=== PATIENT | female | born 2000 | race Native Hawaiian/Other Pacific Islander ===

== ENCOUNTER 2021-01-04 14:27 | Outpatient (REF) | payer OTHER, SELFPAY ==
--- NOTE | ~2021-01-04 | XR_ITS ---
EXAMINATION: XR KNEE, RIGHT CLINICAL INFORMATION: Medial sprain COMPARISON: None TECHNIQUE: Four views of the right knee. FINDINGS: Bones and soft tissues are normal. No fracture or joint effusion. Alignment is anatomic. Joint spaces are well maintained. No abnormal soft tissue calcification. XR/XR knee RT 4V IMPRESSION: Normal right knee.
== END 2021-01-04 14:28 | disposition home or self-care (01) ==
LOC: HO.HMGCX 14:27
PROVIDERS: Visit Provider Physician Assistant Medical
DX: Z13.89 Encounter for screening for other disorder (principal)
CPT/HCPCS: 73564

== ENCOUNTER 2021-11-05 15:13 | Outpatient (REF) | payer OTHER, SELFPAY ==
[2021-11-05 15:23] LABS: MANUAL DIFF FLAG NO
[2021-11-05 15:57] LABS: Basophils Percent Auto 0.3 % (0-2); Eosinophils Absolute Auto 0.1 X10*3/uL (0.0-0.4); Eosinophils Percent Auto 0.7 % (0-4); Hematocrit 37.4 % (37.0-47.0); Imm Gran Abs Auto 0.01 X10*3/uL (0.00-0.03); Imm Gran Pct Auto 0.1 % (0.0-0.4); Lymphocytes Absolute Auto 1.5 X10*3/uL (1.2-4.9); Lymphocytes Percent Auto 20.4 % (20-40); Mean Corpuscular HGB Conc 32.1 g/dl (31.0-35.0); Mean Corpuscular Hemoglobin 24.7 pg (27.0-33.0); Mean Corpuscular Volume 77.1 fL (80.0-98.0); Mean Platelet Volume 12.3 fL (9.4-12.3); Monocytes Absolute Auto 0.6 X10*3/uL (0.1-1.2); Monocytes Percent Auto 7.6 % (2-11); Neutrophils Absolute Auto 5.2 x10*3/uL (2.0-8.3); Neutrophils Percent Auto 70.9 % (45-73); Platelet Count 309 X10*3/uL (160-400); Red Blood Count 4.85 X10*6/uL (4.20-5.50); Red Cell Distribution Width 14.6 % (11.0-16.0); White Blood Count 7.4 X10*3/uL (4.8-10.8)
[2021-11-05 16:27] LABS: Alanine Aminotransferase 14 U/L (0-31); Albumin Level 4.8 g/dL (3.5-5.0); Alkaline Phosphatase 76 U/L (39-117); Anion Gap 14 (12-20); Aspartate Amino Transferase 16 U/L (5-31); Bilirubin Total 0.5 mg/dL (0.0-1.0); Blood Urea Nitrogen 17 mg/dL (9-16); Calcium 9.7 mg/dL (8.4-10.2); Carbon Dioxide 24 mmol/L (22-29); Chloride 104 mmol/L (96-108); Creatinine Clr Calc Pharmacy 147.6; Estimated Glomerular Filt Rate > 60; Glucose Fasting 86 mg/dL (60-99); Potassium 4.4 mmol/L (3.3-5.1); Sodium 138 mmol/L (135-145); Total Protein 8.2 g/dL (6.5-8.0)
[2021-11-05 16:47] LABS: TSH reflex Free T4 1.06 uIU/mL (0.32-4.0); Vitamin D 25-OH Total 20.5 ng/mL (>30)
[2021-11-05 17:03] LABS: Folate 15.6 ng/mL (> or = 4.0); Vitamin B12 393 pg/mL (200-900)
== END 2021-11-05 15:14 | disposition home or self-care (01) ==
LOC: HO.LAB 15:13
PROVIDERS: Visit Provider Nurse Practitioner Family
DX: Z13.29 Encounter for screening for other suspected endocrine disorder (principal); Z76.89 Persons encountering health services in other specified circumstances
CPT/HCPCS: 36415; 80053; 82306; 82607; 82746; 84443; 85025

== ENCOUNTER 2022-04-06 13:32 | Outpatient (REF) | payer OTHER, SELFPAY ==
[2022-04-09 04:44] LABS: Transglutaminase Ab IgG <1.0 U/mL
== END 2022-04-06 13:33 | disposition home or self-care (01) ==
LOC: HO.LAB 13:32
PROVIDERS: PCP Internal Medicine; Visit Provider Internal Medicine
DX: K90.41 Non-celiac gluten sensitivity (principal)
CPT/HCPCS: 36415; 86364

== ENCOUNTER 2022-12-29 07:31 | Emergency (ER) | payer OTHER, SELFPAY ==
[2022-12-29 07:36] VITALS: BP 147/82; PULSE 94; RESP 19; TEMP 36.6; O2SAT 97; BMI 41.1
--- NOTE | 2022-12-29 07:57 | ED.EAR ---
HPI - Ear Problem General Chief complaint: Ear Problems Stated complaint: ear infection? headache Time Seen by Provider: 12/29/22 07:41 Source: patient Mode of arrival: ambulatory Limitations: no limitations History of Present Illness HPI Narrative: 22-year-old female presents with left ear pain. Pain started this morning. Moderate nature. There is no clear relieving or exacerbating features. The pain does not radiate. It is associated with a hearing of wind. She denies any discharge. She denies any fevers or chills. There has been no upper respiratory symptoms. There has been no prior treatment Related Data Home Medications Medication Instructions Recorded Confirmed cetirizine 10 mg tablet (All Day 10 mg PO DAILY PRN 01/02/21 09/27/22 Allergy (cetirizine)) Previous Rx's Medication Instructions Recorded epinephrine 0.3 mg/0.3 mL 0.3 mg (0.3 mL) IM Q4H PRN 11/05/21 injection, auto-injector (EpiPen) anaphylaxis #2 ea albuterol sulfate 90 mcg/actuation 1 inh inhalation QID PRN shortness 03/22/22 aerosol inhaler of breath or wheezing 30 days #8.5 grams acetaminophen 500 mg tablet 500 mg PO Q6H PRN fever 30 days 11/16/22 #120 tabs amoxicillin 875 mg tablet 875 mg PO BID #14 tabs 12/29/22 ewimwpux-[id number]-fbeebnxkt 3.5 4 drp otic (ear) left Q8H 7 days 12/29/22 mg-10,000 unit/mL-1 % ear #10 mL drops,susp Allergies Allergy/AdvReac Type Severity Reaction Status Date / Time corn [CORN] Allergy Severe ANAPHYLAXIS Verified 09/27/22 14:15 grass pollen Allergy Severe Anaphylaxis Verified 09/27/22 14:15 latex Allergy Severe Hives Verified 09/27/22 14:15 milk [MILK] Allergy Severe ANAPHYLAXIS Verified 09/27/22 14:15 nut - unspecified [NUTS] Allergy Unknown 1 Verified 09/27/22 14:15 kiwi Allergy Anaphylaxis Verified 12/29/22 07:36 pineapple Allergy Anaphylaxis Verified 12/29/22 07:36 dust mites Allergy Severe Itching Uncoded 09/27/22 14:15 Review of Systems Review of Systems: CONSTITUTIONAL: Denies weight loss, fever and chills. HEENT: Denies changes in vision + hearing. RESPIRATORY: Denies SOB and cough. CV: Denies palpitations no CP. GI: Denies abdominal pain, nausea, vomiting and diarrhea. : Denies dysuria and urinary frequency. MSK: Denies myalgia and joint pain. SKIN: Denies rash and pruritus. NEUROLOGICAL: Denies headache and syncope. PSYCHIATRIC: Denies recent changes in mood. Denies anxiety and depression. All other ROS are negative unless in HPI PMFSH Past Medical History Medical History History of heart attack MCL sprain of right knee Surgical History History of tonsillectomy Family History Family History Mother Diabetes Father Family history unknown Social History Social History Housing: Apartment Alcohol intake: never Patient Tobacco Use Status: Never used Tobacco e-Cigarette/Vaping Use: Never Used Second Hand Smoke Exposure: No Advance Directives: No service: No Current occupational status: employed Current occupational exposures/hazards: No Cognitive needs: No Hearing needs: No Vision needs: No Physical Exam Vital Signs: Vital Signs: Last Vital Signs Temp 98 F 12/29/22 07:36 Pulse 94 12/29/22 07:36 Resp 19 12/29/22 07:36 BP 147/82 H 12/29/22 07:36 Pulse Ox 97 12/29/22 07:36 O2 Del Method Room Air 12/29/22 07:36 BMI result Body Mass Index 41.1 GEN: Well developed, no acute distress, alert, oriented HEENT: Normocephalic, atraumatic, normal external ears, nose appears normal, normal right ear, left ear reveals edematous and erythematous external auditory canal, opacification of the tympanic membrane consistent with a combination of otitis media and externa Eyes: Normal to appearance Neck: Supple, no lymphadenopathy Respiratory: Talks in complete sentences, no respiratory distress Extremities: No clubbing cyanosis or edema Neurologic: No focal neurologic deficits, cranial nerves 2-12 intact, gait normal Skin: No rash Medical Decision Making Medical Decision Making MDM Narrative: Patient presents with left ear discomfort. Examination was consistent with otitis externa/media. It is most likely a bacterial infection. Differential would also include a viral infection. She has no respiratory symptoms. Plan will be for topical and oral antibiotics. Follow up as needed. Differential Diagnosis Differential Diagnoses: The differential diagnosis associated with the presentation includes (See above) Prescription Management I considered prescription management with: Pain Medication and Antibiotic Discharge Plan Discharge Clinical Impression: Otitis externa, Otitis media Patient Disposition: Home, Self-Care Instructions: Otitis Externa (DC), How to Use Ear Drops (ED), Ear Infection (ED) Prescriptions: New vcikwjej-ccorvfdug-BD 3.5-10,000-1 mg/mL-unit/mL-% drops,suspension 4 drp otic (ear) left Q8H 7 Days Qty: 10 0RF amoxicillin 875 mg tablet 875 mg PO BID Qty: 14 0RF No Action acetaminophen 500 mg tablet 500 mg PO Q6H PRN (Reason: fever) 30 Days Qty: 120 0RF cetirizine [All Day Allergy (cetirizine)] 10 mg tablet 10 mg PO DAILY PRN epinephrine [EpiPen] 0.3 mg/0.3 mL auto-injector 0.3 mg IM Q4H PRN (Reason: anaphylaxis) Qty: 2 0RF albuterol sulfate 90 mcg/actuation HFA aerosol inhaler 1 inh inhalation QID PRN (Reason: shortness of breath or wheezing) 30 Days Qty: 8.5 1RF Referrals: Physician,Unknown J [Primary Care Provider] - (PMD 1 week)
== END 2022-12-29 08:14 | disposition home or self-care (01) ==
PROVIDERS: Emergency Provider Emergency Medicine
DX: H60.92 Unspecified otitis externa, left ear (principal); H66.92 Otitis media, unspecified, left ear; J45.909 Unspecified asthma, uncomplicated; E66.01 Morbid (severe) obesity due to excess calories; Z68.41 Body mass index [BMI] 40.0-44.9, adult; Z79.899 Other long term (current) drug therapy
CPT/HCPCS: 99282; 99283

== ENCOUNTER 2023-04-25 07:22 | Emergency (ER) | payer OTHER, SELFPAY ==
[2023-04-25 07:43] VITALS: BP 126/80; PULSE 90; RESP 19; TEMP 36.6; O2SAT 98; BMI 39.9
--- NOTE | 2023-04-25 09:25 | ED.EAR ---
HPI - Ear Problem General Chief complaint: Ear Problems Stated complaint: Headache R Ear Pain Time Seen by Provider: 04/25/23 09:05 Source: patient, RN notes reviewed and old records reviewed Mode of arrival: ambulatory History of Present Illness HPI Narrative: 23-year-old female with past medical history of GERD, obesity, asthma, presenting to the ED complaining of right ear pain since yesterday. Denies known fever/chills, drainage from area, cough, sore throat, hearing kirk Related Data Home Medications Medication Instructions Recorded Confirmed cetirizine 10 mg tablet (All Day 10 mg PO DAILY PRN 01/02/21 09/27/22 Allergy (cetirizine)) Previous Rx's Medication Instructions Recorded epinephrine 0.3 mg/0.3 mL 0.3 mg (0.3 mL) IM Q4H PRN 11/05/21 injection, auto-injector (EpiPen) anaphylaxis #2 ea albuterol sulfate 90 mcg/actuation 1 inh inhalation QID PRN shortness 03/22/22 aerosol inhaler of breath or wheezing 30 days #8.5 grams acetaminophen 500 mg tablet 500 mg PO Q6H PRN fever 30 days 11/16/22 #120 tabs amoxicillin 875 mg tablet 875 mg PO BID #14 tabs 12/29/22 dvrkkzag-pzyuczzht-vraswzagq 3.5 4 drp otic (ear) left Q8H 7 days 12/29/22 mg-10,000 unit/mL-1 % ear #10 mL drops,susp amoxicillin 875 mg-potassium 1 tab PO BID 7 days #14 tabs 04/25/23 clavulanate 125 mg tablet Allergies Allergy/AdvReac Type Severity Reaction Status Date / Time corn [CORN] Allergy Severe ANAPHYLAXIS Verified 09/27/22 14:15 grass pollen Allergy Severe Anaphylaxis Verified 09/27/22 14:15 latex Allergy Severe Hives Verified 09/27/22 14:15 milk [MILK] Allergy Severe ANAPHYLAXIS Verified 09/27/22 14:15 nut - unspecified [NUTS] Allergy Unknown 1 Verified 09/27/22 14:15 kiwi Allergy Anaphylaxis Verified 12/29/22 07:36 pineapple Allergy Anaphylaxis Verified 12/29/22 07:36 dust mites Allergy Severe Itching Uncoded 09/27/22 14:15 Review of Systems Review of Systems: Constitutional: No Fever, No Chills ENT/Mouth: + Ear Pain, No Nasal Congestion, No Sinus Pain, No Hoarseness, No sore throat, No Rhinorrhea, No Swallowing Difficulty Cardiovascular: No Chest Pain, No SOB Respiratory: No Cough, No Sputum, No Wheezing Gastrointestinal: No Nausea, No Vomiting, No Diarrhea, No Constipation, No Abdominal pain Musculoskeletal: No joint pain, No Myalgias Skin: No Skin Lesions, No rash Yes all other systems are reviewed and are negative Constitutional: Constitutional: Reports as per [facility] Past Medical History Attestation statement: The following information was validated with the patient. Source: old records reviewed Onset Date is defined in the Problem List Problems that require an onset date and time if occurred within 24 hrs of arrival to the ED Aortic Dissection and Rupture; Neurologic impairment; Cardiopulmonary Arrest; Endotracheal Intubation; Insertion or Replacement of Mechanical Circulatory Assist Device Medical History History of heart attack MCL sprain of right knee Surgical History History of tonsillectomy Family History Family History Mother Diabetes Father Family history unknown Social History Social History Housing: Apartment Alcohol intake: never Patient Tobacco Use Status: Never used Tobacco e-Cigarette/Vaping Use: Never Used Second Hand Smoke Exposure: No Advance Directives: No service: No Current occupational status: employed Current occupational exposures/hazards: No Cognitive needs: No Hearing needs: No Vision needs: No Physical Exam Vital Signs: Vital Signs: Last Vital Signs Temp 98 F 04/25/23 07:43 Pulse 90 04/25/23 07:43 Resp 19 04/25/23 07:43 BP 126/80 04/25/23 07:43 Pulse Ox 98 04/25/23 07:43 BMI result Body Mass Index 39.9 Const: General: cooperative, healthy appearing and no acute distress Orientation/consciousness: patient oriented x3 Limitations: no limitations HEENT: Head: Yes normal to inspection and Yes atraumatic Ears: hearing grossly normal bilaterally, external ears normal, mastoids normal and TM abnormal bulging on the right, dull on the right and erythematous on the right General nose exam: Normal external nose present Face and sinus: Yes normal facial exam Mouth: Normal oral and palatal mucosa present Throat: Yes posterior oropharynx normal, Yes uvula midline and No peritonsillar mass Eyes: General: appearance normal, both eyes and all related structures EOM: EOMs intact bilaterally Neck: Neck: Yes normal visual inspection and Yes no meningeal signs Resp: Effort & Inspection: normal respiratory effort and no respiratory distress Cardio: Rate: regular rate Skin: Rashes: no rashes Wounds: no wounds Neuro: General: patient oriented x3, tone normal and no meningeal signs Cranial nerves: Yes CN's II-XII intact bilaterally Gait exam (Neuro): Normal gait present Extrem: General: Yes normal to inspection Medical Decision Making Medical Decision Making MDM Narrative: 23-year-old female with past medical history of GERD, obesity, asthma, presenting to the ED complaining of right ear pain since yesterday. On exam VSS, NAD, nontoxic appearing, R TM buldging w/erythema, no mastoid ttp, oropharynx wnl. Concern otitis media. Low concern for mastoiditis/otitis externa, no evidence of [employer]/retropharyngeal abscess Plan: PO antibiotics Please refer to course for remaining clinical decision making, interpretation of labs/imaging results, and discussions with consultants and/or family members. Results discussed with patient including worrisome signs and symptoms and strict return precautions, and when to return to the emergency department. They verbalized understanding and feel safe for discharge at this time. Differential Diagnosis Differential Diagnoses: The differential diagnosis associated with the presentation includes As above External Record Review External record reviewed: Inpatient record, Office record, Outpatient record, Prior outpatient labs, Prior outpatient radiology, Primary care record and Outside ED record Tests considered The following testing was considered but not selected: As above Prescription Management I considered prescription management with: Pain Medication and Antibiotic Discharge Plan Discharge Clinical Impression: Otitis media Patient Disposition: Home, Self-Care Instructions: Ear Infection (ED) Additional Instructions: You have an inner ear infection. Please take antibiotics as prescribed Alternate Tylenol and Motrin at home as needed for fever/pain Follow-up with her doctor If symptoms persist or worsen return to the ED Prescriptions: New amoxicillin-pot clavulanate 875-125 mg tablet 1 tab PO BID 7 Days Qty: 14 0RF No Action acetaminophen 500 mg tablet 500 mg PO Q6H PRN (Reason: fever) 30 Days Qty: 120 0RF xpmsvpgh-kgmhefxhz-FX 3.5-10,000-1 mg/mL-unit/mL-% drops,suspension 4 drp otic (ear) left Q8H 7 Days Qty: 10 0RF amoxicillin 875 mg tablet 875 mg PO BID Qty: 14 0RF cetirizine [All Day Allergy (cetirizine)] 10 mg tablet 10 mg PO DAILY PRN epinephrine [EpiPen] 0.3 mg/0.3 mL auto-injector 0.3 mg IM Q4H PRN (Reason: anaphylaxis) Qty: 2 0RF albuterol sulfate 90 mcg/actuation HFA aerosol inhaler 1 inh inhalation QID PRN (Reason: shortness of breath or wheezing) 30 Days Qty: 8.5 1RF Referrals: Michelle Vela MD [Primary Care Provider] - 1 week Stand Alone Forms: Work/School Release Interventions: ED Discharge Assessment Last Done: 04/25/23 10:12 Discharge Date/Time: 04/25/23 10:13
== END 2023-04-25 10:13 | disposition home or self-care (01) ==
PROVIDERS: Emergency Provider Emergency Medicine Emergency Medical Services; PCP Internal Medicine
DX: H66.91 Otitis media, unspecified, right ear (principal); R51.9 Headache, unspecified; Z79.899 Other long term (current) drug therapy
CPT/HCPCS: 99282; 99283

== ENCOUNTER 2023-05-03 14:31 | Outpatient (AMB) | payer OTHER, SELFPAY ==
--- NOTE | 2023-05-03 15:24 | AM.OFFWIN_ITS ---
Intake Vital Signs 05/03/23 15:25 Height 5 ft 5 in Weight 240 lb BMI 39.9 BP 122/78 Blood Pressure Location Lt brachial Position Sitting Pulse 75 Pulse Source Pulse Oximeter Temp 97.9 F Temp Source Oral Pulse Oximetry (%) 98 Oxygen Delivery Method Room Air Intake Visit Reasons: EST/ear infection (lobby) Intake Note: pt is here for c.o left ear infection, started a week ago Patient Tobacco Use Status: Never used Tobacco Allergies corn [CORN] Allergy (Severe, Verified 05/03/23 15:24) ANAPHYLAXIS grass pollen Allergy (Severe, Verified 05/03/23 15:24) Anaphylaxis latex Allergy (Severe, Verified 05/03/23 15:24) Hives milk [MILK] Allergy (Severe, Verified 05/03/23 15:24) ANAPHYLAXIS nut - unspecified [NUTS] Allergy (Unknown, Verified 05/03/23 15:24) 1 kiwi Allergy (Verified 05/03/23 15:24) Anaphylaxis pineapple Allergy (Verified 05/03/23 15:24) Anaphylaxis dust mites Allergy (Severe, Uncoded 09/27/22 14:15) Itching Do you need a note to return to daycare/school/sports/work: Yes HPI HPI Comments History of Present Illness Details This is a 23-year-old female with no stated past medical history who was treated on April 25, 2023 with Augmentin for a right ear infection presenting for evaluation of left ear pain and a headache. Patient states she is compliant with her Augmentin and denies having any fevers, chills, sore throat or sinus pain. Patient has not taken any medication for treatment of her headache. [facility] Medical History History of heart attack MCL sprain of right knee Surgical History History of tonsillectomy Family History Mother Diabetes Father Family history unknown Social History Housing: Apartment Alcohol intake: never Patient Tobacco Use Status: Never used Tobacco e-Cigarette/Vaping Use: Never Used Second Hand Smoke Exposure: No service: No Current occupational status: employed Current occupational exposures/hazards: No Cognitive needs: No Hearing needs: No Vision needs: No Review of Systems Const Reports as per HPI, Reports no additional complaints, Denies chills, Denies fever(s) and Reports headache(s) Eyes Reports as per HPI ENT Reports otalgia, Denies facial pain, Reports headache(s) and Denies sinus pressure Card Reports no additional complaints Resp Reports no additional complaints Neuro Reports headache(s) Psych Reports no additional complaints Physical Exam Vital Signs: Last Vital Signs Temp 97.9 F 05/03/23 15:25 Pulse 75 05/03/23 15:25 BP 122/78 05/03/23 15:25 Pulse Ox 98 05/03/23 15:25 Oxygen Delivery Method Room Air 05/03/23 15:25 BMI result Body Mass Index 39.9 Const General: cooperative, healthy appearing, comfortable, no acute distress and well developed Nutritional Appearance: overweight Orientation/consciousness: patient oriented x3 Limitations: no limitations HEENT Head: Yes normal to inspection Ears: hearing grossly normal bilaterally, external ears normal, TM's abnormal bilaterally (TMs bulging bilaterally, mild erythema right TM, no fluid level bilaterally) and EAC's normal General nose exam: Normal external nose present Face and sinus: Yes normal facial exam and No sinus tenderness Mouth: Normal oral and palatal mucosa present Throat: Yes posterior oropharynx normal and No postnasal drainage Eyes Conjunctivae: conjunctivae normal Sclerae: sclerae normal Corneas: corneas normal Pupils: Equal, round and reactive pupils present EOM: EOMs intact bilaterally Neck Lymphatic: no lymphadenopathy noted Resp Effort & Inspection: normal respiratory effort, able to speak in complete sentences, no audible wheezes, no cough and no use of accessory muscles Auscultation: clear to auscultation bilaterally and no wheezes Cardio Rate: regular rate Rhythm: regular rhythm Skin General skin exam: no rashes or lesions noted Neuro General: patient oriented x3 Cranial nerves: Yes Equal, round and reactive pupils present Psych Appearance: grossly normal Mental Status: mental status grossly normal Insight: Good insight present (Psych) Judgement: Good judgement present (Psych) Assessment & Plan Assessment & Plan (1) Otalgia, bilateral: Comment: Patient has residual erythema in her right ear however she recently completed a 7 day course of Augmentin. I do not feel additional antibiotic therapy is warranted. Code(s): H92.03 - Otalgia, bilateral Plan: Fluticasone nasal spray 1 spray each nostril once daily for 7-10 days. Medications: New fluticasone propionate 50 mcg/actuation administer into each nostril 1 spray intranasal DAILY 16 grams 1RF Coding Level of Care Code Est Pt Level 3 (44105) Diagnoses Otalgia, bilateral H92.03 Time Spent (min) 20
[2023-05-03 15:25] VITALS: BP 122/78; PULSE 75; TEMP 36.6; O2SAT 98; BMI 39.9
== END 2023-05-03 16:36 | disposition home or self-care (01) ==
PROVIDERS: PCP Internal Medicine; Visit Provider Physician Assistant
DX: H92.03 Otalgia, bilateral (principal)
CPT/HCPCS: 99213

== ENCOUNTER 2023-05-10 13:42 | Outpatient (AMB) | payer OTHER, SELFPAY ==
--- NOTE | 2023-05-10 13:45 | A.OFFPC_ITS ---
Vital Signs 05/10/23 13:46 Height 5 ft 5 in Weight 255 lb BMI 42.4 BP 132/80 Blood Pressure Location Lt brachial Position Sitting Intake Visit Reasons: [facility] [place] follow up ear infection Intake Note: Patient here for [facility] [place] [facility] follow up Ear Infection Dental Instructor Required: No Accompanied by: Self / Same As Patient Allergies corn [CORN] Allergy (Severe, Verified 05/10/23 13:48) ANAPHYLAXIS grass pollen Allergy (Severe, Verified 05/10/23 13:48) Anaphylaxis latex Allergy (Severe, Verified 05/10/23 13:48) Hives milk [MILK] Allergy (Severe, Verified 05/10/23 13:48) ANAPHYLAXIS nut - unspecified [NUTS] Allergy (Unknown, Verified 05/10/23 13:48) 1 kiwi Allergy (Verified 05/10/23 13:48) Anaphylaxis pineapple Allergy (Verified 05/10/23 13:48) Anaphylaxis dust mites Allergy (Severe, Uncoded 09/27/22 14:15) Itching Medication List - Last Reconciled 05/10/23 by Michelle Turk MD cetirizine (All Day Allergy (cetirizine)) 10 mg PO DAILY PRN epinephrine (EpiPen) 0.3 mg (0.3 mL) IM Q4H PRN Tobacco use date assessed: 05/10/23 Dental Screening Dental Screen Date: 05/10/23 Did you have a dental visit in the last 12 months?: No Did you have a dental problem in the last 6 months where you did not have access to dental care?: No Was dental information given to patient?: Patient has dentist HPI HPI Comments History of Present Illness Details This is a 23-year-old female that comes today complaining of bilateral ear discomfort Rodriguez prominent in the left ear that has been present for about the 1st week of April. She went to ER and was prescribed Augmentin which she completed. She went to walk-in clinic 05/03/2023 for a similar complaint. She said she constantly has ear infections that would like to see ENT. No nasal congestion. Some sore throat. [facility] Medical History History of heart attack MCL sprain of right knee Surgical History History of tonsillectomy Family History Mother Diabetes Father Family history unknown Social History Housing: Apartment Alcohol intake: never Patient Tobacco Use Status: Never used Tobacco e-Cigarette/Vaping Use: Never Used Second Hand Smoke Exposure: No service: No Current occupational status: employed Current occupational exposures/hazards: No Cognitive needs: No Hearing needs: No Vision needs: No Questionnaire PHQ-9 Over the last 2 weeks, how often have you been bothered by any of the following problems? 1. Little interest or pleasure in doing things: not at all 2. Feeling down, depressed, or hopeless: not at all 3. Trouble falling or staying asleep, or sleeping too much: not at all 4. Feeling tired or having little energy: not at all 5. Poor appetite or overeating: not at all 6. Feeling bad about yourself - or that you are a failure or have let yourself or your family down: not at all 7. Trouble concentrating on things, such as reading the newspaper or watching television: not at all 8. Moving or speaking so slowly that other people could have noticed. Or the opposite - being so fidgety or restless that you have been moving around a lot more than usual: not at all 9. Thoughts that you would be better off or of hurting yourself in some way: not at all Total score: 0 Depression Screening Interpretation: Negative Depression Screening Done: Yes 18688 - PHQ-9 Billing: Yes Source: Developed by Drs. Drake Powers, Martha Yeung, Rudolph Hankins and colleagues, with an educational alicia from [employer]. Thrive Questionnaire Date Thrive assessed: 05/10/23 I am a: Patient What is your living situation today?: I have a steady place to live Within the past 12 months, did the food you bought not last and you didn't have the money to get more?: Never true Within the past 12 months, did you worry whether your food would run out before you got money to buy more?: Never true Do you have trouble paying for medicines?: No Do you have trouble getting transportation to medical appointments?: No Do you have trouble paying your heating and electricity bill?: No Do you have trouble taking care of your child, family member or friend?: No Do you have trouble with day-to-day activities such as bathing, preparing meals, shopping, managing finances, etc.?: No Are you currently unemployed and looking for a job?: No Are you interested in more education?: No Please select the resources that you would like help with: None Currently or been in a relationship where the following occur: no concerns reported THRIVE Score: 0 AUDIT C Alcohol Use Questionnaire (AUDIT-C) 1. How often do you have a drink containing alcohol?: Never Total Score: 0 EDGAR-7 AMB Questionnaire EDGAR-7 Date EDGAR - 7 assessed: 05/10/23 Feeling nervous, anxious, or on edge: 0 = Not at all Not being able to stop or control worryin = Not at all Worrying too much about different things: 0 = Not at all Trouble relaxin = Not at all Being so restless that it is hard to sit still: 0 = Not at all Becoming easily annoyed or irritable: 0 = Not at all Feeling afraid as if something awful might happen: 0 = Not at all Total EDGAR-7 score (0-4 normal; 5-9 mild; 10-14 moderate; 15-21 severe): 0 Source: Developed by Drs. Drake Powers, Martha Yeung, Rudolph Hankins and colleagues, with an educational alicia from [employer]. EDGAR-7 Assessment Billing EDGAR-7 Assessment Tool: EDGAR-7 Assessment 71952 Review of Systems Const All systems reviewed & are unremarkable except as noted in HPI and below Eyes Reports no additional complaints, Denies change in vision and Denies other visual disturbances Card Denies chest pain at rest, Denies chest pain with activity, Denies edema, Denies irregular heart rhythm, Denies claudication, Denies dyspnea, Denies dyspnea on exertion, Denies orthopnea, Denies paroxysmal nocturnal dyspnea and Denies slow heart rate Resp Denies cough, Denies dyspnea and Denies dyspnea on exertion GI Denies abdominal pain, Denies change in bowel habits, Denies excessive flatus, Denies nausea and Denies vomiting Denies urinary incontinence, Denies urinary hesitancy and Denies urinary urgency Musc Denies abnormal gait, Denies atrophy, Denies deformity and Denies limited range of motion Skin/Breast Denies bleeding lesions, Denies changing lesions and Denies rash Neuro Denies abnormal gait, Denies behavioral changes and Denies lack of coordination Psych Denies behavioral changes Physical exam (Primary Care) Vital Signs: Last Vital Signs BP 132/80 05/10/23 13:46 BMI result Body Mass Index 42.4 Tobacco/Smoking Status: Tobacco use Status Tobacco use date assessed 05/10/23 05/10/23 13:52 Patient Tobacco Use Status Never used Tobacco 05/10/23 13:52 e-Cigarette/Vaping Use Never Used 05/10/23 13:52 PHQ-9: PHQ-9 Score PHQ-9: Total score 0 05/10/23 14:02 Depression Screening Interpretation: Negative Thrive Assessment: Date of Thrive Assessment Date Thrive assessed 05/10/23 05/10/23 13:52 Currently or been in a relationship where the following occur: no concerns reported Eyes General: appearance normal, both eyes and all related structures Eyelids: Yes eyelids normal Conjunctivae: conjunctivae normal Neck Neck: Yes normal visual inspection and Yes supple Resp Effort & Inspection: normal respiratory effort Auscultation: clear to auscultation bilaterally Cardio Jugular venous distension: no JVD Rate: regular rate Rhythm: regular rhythm Heart sounds: S1 normal heart sound present and S2 normal heart sound present Extrem General: Yes full ROM Office Procedures Flu Questionnaire Does the patient have a severe egg allergy?: No Immunizations flu vacc [id number] 6mos up(PF) 60 mcg(15 mcgx4)/0.5 mL IM syringe Performing Provider: Michelle Turk MD [facility] Documented (not given) by: TONIA Perales on 05/10/23 14:00 Reason Not Given: Patient Refused Assessment and Plan Assessment & Plan (1) Recurrent acute otitis media: Code(s): H66.90 - Otitis media, unspecified, unspecified ear Plan: Start Cipro HC. Referred to ENT. Orders: Orders Influenza [id number] Immunization Today Z23 - Encounter for immunization Referrals Ear/Nose/Throat Referral H66.90 - Otitis media, unspecified, unspecified ear, H92.03 - Otalgia, bilateral Medications: New ciprofloxacin-hydrocortisone 0.2-1 % (Cipro HC) 3 drps otic (ears) BID 10 mL 0RF 5 days Changed From cetirizine (All Day Allergy (cetirizine)) 10 mg PO DAILY PRN To cetirizine (All Day Allergy (cetirizine)) 10 mg PO DAILY PRN 90 tabs 0RF allergy symptoms 90 days Refilled epinephrine (EpiPen) 0.3 mg (0.3 mL) IM Q4H PRN 2 ea 0RF anaphylaxis Z91.018 - Allergy to other foods Coding Level of Care Code Est Pt Level 3 (11400) Diagnoses Recurrent acute otitis media H66.90 Additional Codes EDGAR-7 Assessment Billing - EDGAR-7 Assessment Tool: EDGAR-7 Assessment 36308 ([id number]) Time Spent (min) 19
[2023-05-10 13:46] VITALS: BP 132/80; BMI 42.4
== END 2023-05-10 14:05 | disposition home or self-care (01) ==
PROVIDERS: PCP Internal Medicine; Visit Provider Internal Medicine
DX: H66.93 Otitis media, unspecified, bilateral (principal)
CPT/HCPCS: 99213

== ENCOUNTER 2023-07-19 10:15 | Outpatient (REF) | payer OTHER, SELFPAY ==
[2023-07-19 10:34] LABS: MANUAL DIFF FLAG NO
[2023-07-19 11:11] LABS: Basophils Percent Auto 0.3 % (0-2); Eosinophils Absolute Auto 0.1 X10*3/uL (0.0-0.4); Eosinophils Percent Auto 0.9 % (0-4); Hematocrit 37.2 % (37.0-47.0); Hemoglobin 11.8 g/dl (12.0-16.0); Imm Gran Abs Auto 0.01 X10*3/uL (0.00-0.03); Imm Gran Pct Auto 0.1 % (0.0-0.4); Lymphocytes Absolute Auto 1.6 X10*3/uL (1.2-4.9); Lymphocytes Percent Auto 23.3 % (20-40); Mean Corpuscular HGB Conc 31.7 g/dl (31.0-35.0); Mean Corpuscular Hemoglobin 24.9 pg (27.0-33.0); Mean Corpuscular Volume 78.6 fL (80.0-98.0); Mean Platelet Volume 11.9 fL (9.4-12.3); Monocytes Absolute Auto 0.5 X10*3/uL (0.1-1.2); Monocytes Percent Auto 7.1 % (2-11); Neutrophils Absolute Auto 4.8 x10*3/uL (2.0-8.3); Neutrophils Percent Auto 68.3 % (45-73); Platelet Count 302 X10*3/uL (160-400); Red Blood Count 4.73 X10*6/uL (4.20-5.50); Red Cell Distribution Width 13.9 % (11.0-16.0)
[2023-07-19 12:07] LABS: Alanine Aminotransferase 13 U/L (0-31); Albumin Level 4.3 g/dL (3.5-5.0); Alkaline Phosphatase 67 U/L (39-117); Anion Gap 10 (12-20); Aspartate Amino Transferase 15 U/L (5-31); Bilirubin Total 0.3 mg/dL (0.0-1.0); Blood Urea Nitrogen 14 mg/dL (9-16); Calcium 9.4 mg/dL (8.4-10.2); Carbon Dioxide 25 mmol/L (22-29); Chloride 108 mmol/L (96-108); Cholesterol 134 mg/dL (<200); Estimated Glomerular Filt Rate > 60; Glucose Fasting 97 mg/dL (60-99); HDL Cholesterol 43 mg/dL (>40); LDL Cholesterol Calculated 78 mg/dL (<100); Sodium 139 mmol/L (135-145); Total Protein 7.8 g/dL (6.5-8.0); Triglycerides 65 mg/dL (<150)
[2023-07-19 12:15] LABS: Thyroid Stimulating Hormone 1.07 uIU/mL (0.32-4.0); Vitamin D 25-OH Total 10.8 ng/mL (>30)
[2023-07-22 08:28] LABS: TS Negative Control Passed; TS Panel A 0; TS Panel B 0; TS Positive Control Passed; TSpotTB Negative (Negative)
== END 2023-07-19 10:16 | disposition home or self-care (01) ==
LOC: HO.LAB 10:15
PROVIDERS: PCP Internal Medicine; Visit Provider Internal Medicine
DX: E55.9 Vitamin D deficiency, unspecified (principal); E66.01 Morbid (severe) obesity due to excess calories; Z11.1 Encounter for screening for respiratory tuberculosis
CPT/HCPCS: 36415; 80053; 80061; 82306; 84443; 85025; 86481

== ENCOUNTER 2023-08-18 09:55 | Outpatient (AMB) | payer OTHER, SELFPAY ==
[2023-08-18 09:55] VITALS: BP 114/70; PULSE 87; TEMP 36.8; O2SAT 98; BMI 43.6
--- NOTE | 2023-08-18 09:55 | AM.OFFWIN_ITS ---
Intake Vital Signs 08/18/23 09:55 Height 5 ft 5 in Weight 262 lb BMI 43.6 BP 114/70 Blood Pressure Location Rt brachial Position Sitting Pulse 87 Pulse Source Pulse Oximeter Temp 98.3 F Temp Source Oral Pulse Oximetry (%) 98 Oxygen Delivery Method Room Air Intake Visit Reasons: EP Lft foot pain Intake Note: Pt presents to the office today for c/o left foot pain that started 2 days ago. She states the pain started out of nowhere with no known injury. She states it hurts to walk. Patient Tobacco Use Status: Never used Tobacco Allergies corn [CORN] Allergy (Severe, Verified 08/18/23 09:56) ANAPHYLAXIS grass pollen Allergy (Severe, Verified 08/18/23 09:56) Anaphylaxis latex Allergy (Severe, Verified 08/18/23 09:56) Hives milk [MILK] Allergy (Severe, Verified 08/18/23 09:56) ANAPHYLAXIS nut - unspecified [NUTS] Allergy (Unknown, Verified 08/18/23 09:56) 1 kiwi Allergy (Verified 08/18/23 09:56) Anaphylaxis pineapple Allergy (Verified 08/18/23 09:56) Anaphylaxis dust mites Allergy (Severe, Uncoded 08/18/23 09:56) Itching HPI EP Lft foot pain HPI Details 23 year old female patient presents to [facility] clinic today with a 2-3 day history of left ankle pain/swelling. Denies fall or trauma to ankle. Reports it is painful to walk/stand, and she feels a sharp pain at the front of her ankle. [facility] Medical History History of heart attack MCL sprain of right knee Surgical History History of tonsillectomy Family History Mother Diabetes Father Family history unknown Social History Housing: Apartment Alcohol intake: never Patient Tobacco Use Status: Never used Tobacco e-Cigarette/Vaping Use: Never Used Second Hand Smoke Exposure: No service: No Current occupational status: employed Current occupational exposures/hazards: No Cognitive needs: No Hearing needs: No Vision needs: No Review of Systems Const All systems reviewed & are unremarkable except as noted in HPI and below Physical Exam Vital Signs: Last Vital Signs Temp 98.3 F 08/18/23 09:55 Pulse 87 08/18/23 09:55 BP 114/70 08/18/23 09:55 Pulse Ox 98 08/18/23 09:55 Oxygen Delivery Method Room Air 08/18/23 09:55 BMI result Body Mass Index 43.6 Const General: cooperative and no acute distress Nutritional Appearance: obese Resp Effort & Inspection: normal respiratory effort Skin General skin exam: no rashes or lesions noted Neuro Gait exam (Neuro): Antalgic gait present Motor exam (neuro): 5/5 motor strength present throughout Extrem Left lower extremity: normal capillary refill and ankle (no warmth, no erythema, no crepitus) Details: normal to inspection, tenderness Location: anteromedially, no edema and abnormal ROM Details: pain with active ROM Details: with plantar flexion and with dorsiflexion Psych Appearance: grossly normal Mental Status: mental status grossly normal Speech and movement: Normal speech and movement present Assessment & Plan Assessment & Plan (1) Left ankle swelling: Code(s): M25.472 - Effusion, left ankle Plan: XR obtained in the office shows some soft tissue swelling however no acute findings/fracture. Likely minor sprain. I applied NICKOLAS wrap to ankle and we discussed conservative management with rest, ice, elevation, and use of NSAIDs. Patient states she has some Motrin at home. If she does not improve with time and conservative treatment, or if symptoms worsen/new ankle symptoms develop, she should return to the clinic for further evaluation. She verbalizes understanding and agrees to plan. Coding Level of Care Code Est Pt Level 4 (14140) Diagnoses Left ankle swelling M25.472
--- OUTSIDE RECORDS SUMMARY | 2023-08-18 09:56 | XMS_ITS | Summary of Care ---
Author Organization [facility] spital Address [address] [place] [address]- Care Team Providers Care Global Regulatory Affairs Manager Name Role Phone JUNIE MITCHELL, SOFI Otto Primary Care Physicia n Encounter [facility]_CSN [id number] Date(s): 08/31/21 - 08/31/[address] [address]- Attending Physician: LEX MASON PsyD Allergies, Adverse Reactions, Alerts Substance Reaction Severity Status pineapple Active doritos Active Latex Active kiwi Active dust mites Active Problem List Condition Effective Dates Status Health Status Inform ant Allergy to nuts(Confirmed) Active Body odor(Confirmed) Active Childhood obesity(Confirmed) Active Chronic idiopathic urticaria(Confirmed) Active Cow's milk allergy(Confirmed) Active Dermatitis(Confirmed) 1 Active Epilepsy resolved(Confirmed) Active Irregular periods(Confirmed) Active Learning disability(Confirmed) Active Mild intermittent asthma(Confirmed) Active 1Added by [facility]
--- OUTSIDE RECORDS SUMMARY | 2023-08-18 09:56 | XMS_ITS | Summary of Care ---
Author Organization [facility] spital Address [address] [place] [address]- Care Team Providers Care Ship Scaler Name Role Phone JUNIE MITCHELL, SOFI Otto Primary Care Physicia n Encounter [facility]_CSN [id number] Date(s): 09/06/21 - 09/06/[address] [address]- Attending Physician: ELIZABETH HERNANDEZ RD Allergies, Adverse Reactions, Alerts Substance Reaction Severity Status pineapple Active doritos Active kiwi Active Latex Active dust mites Active Problem List Condition Effective Dates Status Health Status Inform ant Allergy to nuts(Confirmed) Active Body odor(Confirmed) Active Childhood obesity(Confirmed) Active Chronic idiopathic urticaria(Confirmed) Active Cow's milk allergy(Confirmed) Active Dermatitis(Confirmed) 1 Active Epilepsy resolved(Confirmed) Active Irregular periods(Confirmed) Active Learning disability(Confirmed) Active Mild intermittent asthma(Confirmed) Active 1Added by [facility]
--- OUTSIDE RECORDS SUMMARY | 2023-08-18 09:57 | XMS_ITS | Summary of Care ---
Author Organization [facility] spital Address [address] [place] [address]- Care Team Providers Care Director Of Epidemiology Name Role Phone SOFI ZAMAN MD Primary Care Physicia n Encounter [facility]_CSN [id number] Date(s): 12/04/19 - 12/04/[address] [address]- [facility] Attending Physician: LEX MASON PsyD Referring Physician: SOFI ZAMAN MD Allergies, Adverse Reactions, Alerts Substance Reaction Severity Status pineapple Active doritos Active Latex Active dust mites Active kiwi Active Problem List Condition Effective Dates Status Health Status Inform ant Allergy to nuts(Confirmed) Active Body odor(Confirmed) Active Childhood obesity(Confirmed) Active Chronic idiopathic urticaria(Confirmed) Active Cow's milk allergy(Confirmed) Active Dermatitis(Confirmed) 1 Active Epilepsy resolved(Confirmed) Active Irregular periods(Confirmed) Active Learning disability(Confirmed) Active Mild intermittent asthma(Confirmed) Active 1Added by [facility]
--- OUTSIDE RECORDS SUMMARY | 2023-08-18 09:57 | XMS_ITS | Summary of Care ---
Author Organization [facility] spital Address [address] [place] [address]- Care Team Providers Care Nitro Man Name Role Phone JUNIE MITCHELL, SOFI Otto Primary Care Physicia n Encounter [facility]_CSN [id number] Date(s): 01/19/22 - 09/06/[address] [address]- Attending Physician: ANIYA MCMILLAN MD Allergies, Adverse Reactions, Alerts Substance Reaction [...] Active Mild intermittent asthma(Confirmed) Active 1Added by [facility]
--- OUTSIDE RECORDS SUMMARY | 2023-08-18 09:57 | XMS_ITS | Summary of Care ---
Author Organization [facility], [facility]. Address [address] [place] [address]. [place] [address]- Care Team Providers Care Inletter Name Role Phone SOFI ZAMAN MD Primary Care Physicia n Encounter [facility]_CSN [id number] Date(s): 10/29/19 - 10/29/19 [facility], [address] [address]- [facility] Encounter Diagnosis Localization-related (focal) (partial) symptomatic epilepsy and epileptic syndromes with complex partial seizures, intractable, without status epilepticus (Final) - Other specified mental disorders due to known physiological condition(Final) - Developmental disorder of scholastic skills, unspecified(Final) - Other epilepsy, not intractable, without status epilepticus(Final) - Discharge Disposition: Discharge Attending Physician: CURT BOCANEGRA Referring Physician: SOFI ZAMAN MD Allergies, Adverse [...] Active Mild intermittent asthma(Confirmed) Active 1Added by [facility]
--- OUTSIDE RECORDS SUMMARY | 2023-08-18 09:57 | XMS_ITS | Summary of Care ---
Author Organization [facility] spital Address [address] [place] [address]- Care Team Providers Care Banquet Coordinator Name Role Phone JUNIE MITCHELL, SOFI Otto Primary Care Physicia n Encounter [facility]_CSN [id number] Date(s): 09/21/21 - 09/21/[address] [address]- Discharge Disposition: Discharge Attending Physician: SONYA SÁNCHEZ MD Allergies, Adverse Reactions, Alerts Substance Reaction [...] Active Mild intermittent asthma(Confirmed) Active 1Added by [facility]
--- OUTSIDE RECORDS SUMMARY | 2023-08-18 09:57 | XMS_ITS | Summary of Care ---
Author Organization [facility] spital Address [address] [place] [address]- Care Team Providers Care Rn Internal Medicine Name Role Phone SOFI ZAMAN MD Primary Care Physicia n Encounter [facility]_CSN [id number] Date(s): 12/04/19 - 12/04/[address] [address]- [facility] Attending Physician: AMANDA ALMENDAREZ, SERGIO HAGAN Referring Physician: SOFI ZAMAN MD Allergies, Adverse [...] Active Mild intermittent asthma(Confirmed) Active 1Added by [facility]
--- OUTSIDE RECORDS SUMMARY | 2023-08-18 09:57 | XMS_ITS | Summary of Care ---
Author Organization [facility] spital Address [address] [place] [address]- Care Team Providers Care Unix Architect Name Role Phone JUNIE MITCHELL, SOFI Otto Primary Care Physicia n Encounter [facility]_CSN [id number] Date(s): 10/21/21 - 10/21/[address] [address]- Discharge Disposition: Discharge Attending Physician: GLORIA GUTIÉRREZ MD Allergies, Adverse Reactions, Alerts Substance Reaction Severity Status pineapple Active doritos Active dust mites Active kiwi Active Latex Active Problem List Condition Effective Dates Status Health Status Inform ant Allergy to nuts(Confirmed) Active Body odor(Confirmed) Active Childhood obesity(Confirmed) Active Chronic idiopathic urticaria(Confirmed) Active Cow's milk allergy(Confirmed) Active Dermatitis(Confirmed) 1 Active Epilepsy resolved(Confirmed) Active Irregular periods(Confirmed) Active Learning disability(Confirmed) Active Mild intermittent asthma(Confirmed) Active 1Added by [facility]
--- OUTSIDE RECORDS SUMMARY | 2023-08-18 09:57 | XMS_ITS | Summary of Care ---
Author Organization [facility], [facility]. Address [address] [place] [address]. [place] [address]- Care Team Providers Care Contracting Officer Name Role Phone SOFI ZAMAN MD Primary Care Physicia n Encounter [facility]_CSN [id number] Date(s): 11/04/19 - 10/17/19 [facility], [place] [id number]- [facility] Attending Physician: [facility] Referring Physician: SOFI ZAMAN MD Allergies, Adverse [...] Active Mild intermittent asthma(Confirmed) Active 1Added by [facility]
== END 2023-08-18 10:38 | disposition home or self-care (01) ==
PROVIDERS: PCP Internal Medicine; Visit Provider Nurse Practitioner Family
DX: M25.472 Effusion, left ankle (principal)
CPT/HCPCS: 99214

== ENCOUNTER 2023-08-18 10:14 | Outpatient (REF) | payer OTHER, SELFPAY ==
--- NOTE | ~2023-08-18 | XR_ITS ---
EXAMINATION: XR ANKLE, LEFT CLINICAL INFORMATION: Left ankle effusion. COMPARISON: None available. TECHNIQUE: AP, lateral, and mortise views of the left ankle. FINDINGS: No acute fracture or dislocation. The ankle mortise is maintained. No joint space narrowing or marginal osteophytes. No osseous erosion. No abnormal soft tissue calcification. Mild circumferential soft tissue swelling. No significant joint effusion. XR/XR ankle LT min 3V IMPRESSION: Mild circumferential soft tissue swelling without acute osseous abnormality.
== END 2023-08-18 10:15 | disposition home or self-care (01) ==
LOC: HO.HMGCX 10:14
PROVIDERS: PCP Internal Medicine; Visit Provider Nurse Practitioner Family
DX: M25.472 Effusion, left ankle (principal)
CPT/HCPCS: 73610

== ENCOUNTER 2023-10-03 10:02 | Outpatient (AMB) | payer OTHER, SELFPAY ==
[2023-10-03 10:04] VITALS: BP 120/78; BMI 43.6
--- NOTE | 2023-10-03 10:04 | A.OFFPC_ITS ---
Vital Signs 10/03/23 10:04 Height 5 ft 5 in Weight 262 lb BMI 43.6 BP 120/78 Blood Pressure Location Lt brachial Position Sitting Intake Visit Reasons: Annual Exam Intake Note: Patient here for an annual physical exam Reading Professor Required: No Accompanied by: Self / Same As Patient Allergies corn [CORN] Allergy (Severe, Verified 10/03/23 10:36) ANAPHYLAXIS grass pollen Allergy (Severe, Verified 10/03/23 10:36) Anaphylaxis latex Allergy (Severe, Verified 10/03/23 10:36) Hives milk [MILK] Allergy (Severe, Verified 10/03/23 10:36) ANAPHYLAXIS nut - unspecified [NUTS] Allergy (Unknown, Verified 10/03/23 10:36) 1 kiwi Allergy (Verified 10/03/23 10:36) Anaphylaxis pineapple Allergy (Verified 10/03/23 10:36) Anaphylaxis dust mites Allergy (Severe, Uncoded 10/03/23 10:36) Itching Medication List - Last Reconciled 10/03/23 by Michelle Turk MD cetirizine (All Day Allergy (cetirizine)) 10 mg PO DAILY PRN 90 days cholecalciferol (vitamin D3) 50 mcg PO DAILY 90 days epinephrine (EpiPen) 0.3 mg (0.3 mL) IM Q4H PRN Tobacco use date assessed: 05/10/23 Dental Screening Dental Screen Date: 05/10/23 HPI HPI Comments History of Present Illness Details This is a 23-year-old female with morbid obesity that comes for her physical exam. She is morbidly obese and would like to try weight management. No chest pain or shortness on breath. [facility] Medical History (Updated 10/03/23 @ 10:41 by Michelle Turk MD) History of heart attack MCL sprain of right knee Surgical History History of tonsillectomy Family History Mother Diabetes Father Family history unknown Social History Housing: Apartment Alcohol intake: never Patient Tobacco Use Status: Never used Tobacco e-Cigarette/Vaping Use: Never Used Second Hand Smoke Exposure: No service: No Current occupational status: employed Current occupational exposures/hazards: No Cognitive needs: No Hearing needs: No Vision needs: No Questionnaire Thrive Questionnaire Date Thrive assessed: 05/10/23 EDGAR-7 AMB Questionnaire EDGAR-7 Date EDGAR - 7 assessed: 05/10/23 Source: Developed by Drs. Drake Powers, Martha Yeung, Rudolph Hankins and colleagues, with an educational alicia from [employer]. Review of Systems Const All systems reviewed & are unremarkable except as noted in HPI and below Card Denies chest pain at rest, Denies chest pain with activity, Denies edema, Denies irregular heart rhythm, Denies claudication, Denies dyspnea, Denies dyspnea on exertion, Denies orthopnea, Denies paroxysmal nocturnal dyspnea and Denies slow heart rate Resp Denies cough, Denies dyspnea and Denies dyspnea on exertion GI Denies abdominal pain, Denies change in bowel habits, Denies excessive flatus, Denies nausea and Denies vomiting Physical exam (Primary Care) Vital Signs: Last Vital Signs BP 120/78 10/03/23 10:04 BMI result Body Mass Index 43.6 Tobacco/Smoking Status: Tobacco use Status Tobacco use date assessed 05/10/23 10/03/23 10:07 Patient Tobacco Use Status Never used Tobacco 10/03/23 10:07 e-Cigarette/Vaping Use Never Used 10/03/23 10:07 Thrive Assessment: Date of Thrive Assessment Date Thrive assessed 05/10/23 10/03/23 10:07 HENLA Head: Yes normal to inspection, Yes normocephalic and Yes atraumatic Ears: external ears normal Eyes General: appearance normal, both eyes and all related structures Eyelids: Yes eyelids normal Conjunctivae: conjunctivae normal Neck Neck: Yes normal visual inspection and Yes supple Resp Effort & Inspection: normal respiratory effort Auscultation: clear to auscultation bilaterally Cardio Jugular venous distension: no JVD Rate: regular rate Rhythm: regular rhythm Heart sounds: S1 normal heart sound present and S2 normal heart sound present GI Inspection: Yes normal to inspection Palpation (GI): Soft to palpation and nontender Auscultation: normal bowel sounds Skin General skin exam: no rashes or lesions noted Neuro General: no focal motor deficits Extrem General: Yes full ROM Psych Appearance: grossly normal Assessment and Plan Assessment & Plan (1) Physical exam: Code(s): Z00.00 - Encounter for general adult medical examination without abnormal findings Plan: Repeat in a year. (2) Morbid obesity: Code(s): E66.01 - Morbid (severe) obesity due to excess calories Plan: Referred to weight management. BMI goal is less than 30. Orders: Orders Vitamin D 25-OH Total Today E55.9 - Vitamin D deficiency, unspecified Celiac Diagnostic Gliadin TTG Today K90.41 - Non-celiac gluten sensitivity Complete Blood Count Auto Diff Today D64.9 - Anemia, unspecified IRON PROFILE Today D64.9 - Anemia, unspecified Referrals Medical Weight Management Referral E66.01 - Morbid (severe) obesity due to excess calories Medications: New omeprazole 20 mg PO DAILY PRN 90 caps 0RF heartburn 90 days Refilled cetirizine (All Day Allergy (cetirizine)) 10 mg PO DAILY PRN 90 tabs 0RF allergy symptoms 90 days cholecalciferol (vitamin D3) 50 mcg PO DAILY 90 caps 1RF 90 days Review Declined Pap Smear: 10/03/23 Coding Level of Care Code Est Pt Prev Care 18-39y(41864) Diagnoses Physical exam Z00.00 Morbid obesity E66.01 Time Spent (min) 30
== END 2023-10-03 11:01 | disposition home or self-care (01) ==
PROVIDERS: PCP Internal Medicine; Visit Provider Internal Medicine
DX: Z00.00 Encounter for general adult medical examination without abnormal findings (principal); E66.01 Morbid (severe) obesity due to excess calories; Z68.41 Body mass index [BMI] 40.0-44.9, adult
CPT/HCPCS: 99395

== ENCOUNTER 2023-10-09 07:29 | Outpatient (REF) | payer OTHER, SELFPAY ==
[2023-10-09 07:42] LABS: MANUAL DIFF FLAG NO
[2023-10-09 07:51] LABS: Basophils Percent Auto 0.3 % (0-2); Eosinophils Absolute Auto 0.2 X10*3/uL (0.0-0.4); Eosinophils Percent Auto 1.6 % (0-4); Hematocrit 35.8 % (37.0-47.0); Hemoglobin 11.7 g/dl (12.0-16.0); Imm Gran Abs Auto 0.02 X10*3/uL (0.00-0.03); Imm Gran Pct Auto 0.2 % (0.0-0.4); Lymphocytes Absolute Auto 2.2 X10*3/uL (1.2-4.9); Lymphocytes Percent Auto 23.7 % (20-40); Mean Corpuscular HGB Conc 32.7 g/dl (31.0-35.0); Mean Corpuscular Hemoglobin 25.5 pg (27.0-33.0); Mean Platelet Volume 11.8 fL (9.4-12.3); Monocytes Absolute Auto 0.8 X10*3/uL (0.1-1.2); Monocytes Percent Auto 8.6 % (2-11); Neutrophils Absolute Auto 6.2 x10*3/uL (2.0-8.3); Neutrophils Percent Auto 65.6 % (45-73); Platelet Count 301 X10*3/uL (160-400); Red Blood Count 4.59 X10*6/uL (4.20-5.50); Red Cell Distribution Width 14.3 % (11.0-16.0); White Blood Count 9.5 X10*3/uL (4.8-10.8)
[2023-10-09 08:24] LABS: Iron 29 mcg/dL (30-160); Percent Iron Saturation 10 % (15-50); Total Iron Binding Capacity 301 mcg/dL (228-428); Unsaturated Iron Binding 272 ug/dL
[2023-10-09 08:40] LABS: Vitamin D 25-OH Total 13.2 ng/mL (>30)
[2023-10-10 20:18] LABS: Gliadin Deamidated IgA Ab <1.0 U/mL; Gliadin Deamidated IgG Ab <1.0 U/mL; Immunoglobulin A 166 mg/dL (47-310); Transglutaminase Ab IgG <1.0 U/mL; Transglutaminase IgA <1.0 U/mL
== END 2023-10-09 07:30 | disposition home or self-care (01) ==
LOC: HO.LAB 07:29
PROVIDERS: PCP Internal Medicine; Visit Provider Internal Medicine
DX: K90.41 Non-celiac gluten sensitivity (principal); E55.9 Vitamin D deficiency, unspecified; D64.9 Anemia, unspecified
CPT/HCPCS: 36415; 82306; 82784; 83540; 85025; 86258; 86364

== ENCOUNTER 2024-10-17 13:17 | Outpatient (AMB) | payer OTHER, SELFPAY ==
--- NOTE | 2024-10-17 13:26 | A.OFFPC_ITS ---
Vital Signs 10/17/24 13:27 Height 5 ft 5 in Weight 261 lb BMI 43.4 BP 132/80 Blood Pressure Location Lt brachial Position Sitting Intake Visit Reasons: Annual Exam Intake Note: Patient here for an annual exam [employer] Required: No Accompanied by: Self / Same As Patient Allergies corn (CORN) Allergy (Severe, Verified 10/17/24 13:47) ANAPHYLAXIS grass pollen Allergy (Severe, Verified 10/17/24 13:47) Anaphylaxis latex Allergy (Severe, Verified 10/17/24 13:47) Hives milk (MILK) Allergy (Severe, Verified 10/17/24 13:47) ANAPHYLAXIS nut - unspecified (NUTS) Allergy (Unknown, Verified 10/17/24 13:47) 1 kiwi Allergy (Verified 10/17/24 13:47) Anaphylaxis pineapple Allergy (Verified 10/17/24 13:47) Anaphylaxis dust mites Allergy (Severe, Uncoded 10/17/24 13:47) Itching Medication List - Last Reconciled 10/17/24 by Michelle Turk MD cetirizine (All Day Allergy (cetirizine)) 10 mg PO DAILY PRN 90 days cholecalciferol (vitamin D3) 50 mcg PO DAILY 90 days epinephrine (EpiPen) 0.3 mg (0.3 mL) IM Q4H PRN omeprazole 20 mg PO DAILY PRN 90 days Tobacco use date assessed: 10/17/24 Dental Screening Dental Screen Date: 10/17/24 Did you have a dental visit in the last 12 months?: No Did you have a dental problem in the last 6 months where you did not have access to dental care?: No Was dental information given to patient?: Patient has dentist HPI HPI Comments History of Present Illness Details The patient is a 24-year-old female presenting with a physical examination. She has a history of anemia and low vitamin D levels, which are to be monitored during this visit. The patient is mildly obese, which is attributed to her current diet and exercise habits. She also has a developmental kidney disorder and autism spectrum disorder, but she is capable of following simple commands. [facility] Medical History History of heart attack MCL sprain of right knee Surgical History History of tonsillectomy Family History Mother Diabetes Father Family history unknown Social History Housing: Apartment Alcohol intake: never Patient Tobacco Use Status: Never used Tobacco e-Cigarette/Vaping Use: Never Used Second Hand Smoke Exposure: No service: No Current occupational status: employed Current occupational exposures/hazards: No Cognitive needs: No Hearing needs: No Vision needs: No Questionnaire PHQ-9 Over the last 2 weeks, how often have you been bothered by any of the following problems? 1. Little interest or pleasure in doing things: not at all 2. Feeling down, depressed, or hopeless: not at all 3. Trouble falling or staying asleep, or sleeping too much: not at all 4. Feeling tired or having little energy: not at all 5. Poor appetite or overeating: not at all 6. Feeling bad about yourself - or that you are a failure or have let yourself or your family down: not at all 7. Trouble concentrating on things, such as reading the newspaper or watching television: not at all 8. Moving or speaking so slowly that other people could have noticed. Or the opposite - being so fidgety or restless that you have been moving around a lot more than usual: not at all 9. Thoughts that you would be better off or of hurting yourself in some way: not at all Total score: 0 Depression Screening Interpretation: Negative Depression Screening Done: Yes 92948 - PHQ-9 Billing: Yes Source: Developed by Drs. Drake Powers, Martha Yeung, Rudolph Hankins and colleagues, with an educational alicia from [employer]. Thrive Questionnaire Date Thrive assessed: 10/17/24 I am a: Patient What is your living situation today?: I have a steady place to live Within the past 12 months, did the food you bought not last and you didn't have the money to get more?: I choose not to answer this question Within the past 12 months, did you worry whether your food would run out before you got money to buy more?: Never true Do you have trouble paying for medicines?: No Do you have trouble getting transportation to medical appointments?: No Do you have trouble paying your heating and electricity bill?: No Do you have trouble taking care of your child, family member or friend?: No Do you have trouble with day-to-day activities such as bathing, preparing meals, shopping, managing finances, etc.?: No Are you currently unemployed and looking for a job?: Yes Are you interested in more education?: Yes Please select the resources that you would like help with: None Currently or been in a relationship where the following occur: I choose not to answer THRIVE Score: 0 AUDIT C Alcohol Use Questionnaire (AUDIT-C) 1. How often do you have a drink containing alcohol?: Never Total Score: 0 Score Reviewed/Action Taken: No EDGAR-7 AMB Questionnaire EDGAR-7 Date EDGAR - 7 assessed: 10/17/24 Feeling nervous, anxious, or on edge: 0 = Not at all Not being able to stop or control worryin = Not at all Worrying too much about different things: 0 = Not at all Trouble relaxin = Not at all Being so restless that it is hard to sit still: 0 = Not at all Becoming easily annoyed or irritable: 0 = Not at all Feeling afraid as if something awful might happen: 0 = Not at all Total EDGAR-7 score (0-4 normal; 5-9 mild; 10-14 moderate; 15-21 severe): 0 Source: Developed by Drs. Drake Powers, Martha Yeung, Rudolph Hankins and colleagues, with an educational alicia from [employer]. EDGAR-7 Assessment Billing EDGAR-7 Assessment Tool: EDGAR-7 Assessment 74601 Review of Systems Const All systems reviewed & are unremarkable except as noted in HPI and below Card Denies chest pain at rest, Denies chest pain with activity, Denies edema, Denies irregular heart rhythm, Denies claudication, Denies dyspnea, Denies dyspnea on exertion, Denies orthopnea, Denies paroxysmal nocturnal dyspnea and Denies slow heart rate Resp Denies cough, Denies dyspnea and Denies dyspnea on exertion GI Denies abdominal pain, Denies change in bowel habits, Denies excessive flatus, Denies nausea and Denies vomiting Physical exam (Primary Care) Vital Signs: Last Vital Signs BP 132/80 10/17/24 13:27 BMI result Body Mass Index 43.4 BMI Assessment/Plan discussion: High BMI High, discussed plan: lifestyle, weight reduction, dietary and physical activity Tobacco/Smoking Status: Tobacco use Status Tobacco use date assessed 10/17/24 10/17/24 13:33 Patient Tobacco Use Status Never used Tobacco 10/17/24 13:33 e-Cigarette/Vaping Use Never Used 10/17/24 13:33 PHQ-9: PHQ-9 Score PHQ-9: Total score 0 10/17/24 13:33 Depression Screening Interpretation: Negative Thrive Assessment: Date of Thrive Assessment Date Thrive assessed 10/17/24 10/17/24 13:33 Currently or been in a relationship where the following occur: I choose not to answer HENMS Head: Yes normal to inspection, Yes normocephalic and Yes atraumatic Ears: external ears normal Eyes General: appearance normal, both eyes and all related structures Eyelids: Yes eyelids normal Conjunctivae: conjunctivae normal Neck Neck: Yes normal visual inspection and Yes supple Resp Effort & Inspection: normal respiratory effort Auscultation: clear to auscultation bilaterally Cardio Jugular venous distension: no JVD Rate: regular rate Rhythm: regular rhythm Heart sounds: S1 normal heart sound present and S2 normal heart sound present GI Inspection: Yes normal to inspection Palpation (GI): Soft to palpation and nontender Auscultation: normal bowel sounds Skin General skin exam: no rashes or lesions noted Neuro General: no focal motor deficits Extrem General: Yes full ROM Psych Appearance: grossly normal Coding Level of Care Code Est Pt Prev Care 18-39y(78316) Diagnoses Physical exam Z00.00 Morbid obesity E66.01 Additional Codes PHQ-9 - 01722 - PHQ-9 Billing: Yes ([id number]) EDGAR-7 Assessment Billing - EDGAR-7 Assessment Tool: EDGAR-7 Assessment 15462 ([id number]) Time Spent (min) 30 Assessment & Plan Assessment & Plan (1) Physical exam: Code(s): Z00.00 - Encounter for general adult medical examination without abnormal findings Category: Medical (2) Morbid obesity: Code(s): E66.01 - Morbid (severe) obesity due to excess calories Category: Medical Plan Continue current medications. Orders: Orders Vitamin D 25-OH Total Today E55.9 - Vitamin D deficiency, unspecified Comprehensive [place]. Panel Fast Today Z00.00 - Encounter for general adult medical examination without abnormal findings Complete Blood Count Auto Diff Today D64.9 - Anemia, unspecified IRON PROFILE Today D64.9 - Anemia, unspecified Celiac Diagnostic Gliadin TTG Today K90.41 - Non-celiac gluten sensitivity Lipid Panel Today Z00.00 - Encounter for general adult medical examination without abnormal findings Medications: Refilled epinephrine (EpiPen) 0.3 mg (0.3 mL) IM Q4H PRN 2 ea 0RF anaphylaxis Z91.018 - Allergy to other foods omeprazole 20 mg PO DAILY PRN 90 caps 0RF heartburn 90 days cetirizine (All Day Allergy (cetirizine)) 10 mg PO DAILY PRN 90 tabs 0RF allergy symptoms 90 days
--- OUTSIDE RECORDS SUMMARY | 2024-10-17 13:26 | XMS_ITS | Clinical Summary ---
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 at 10y/o T/A surgery Asthma 10/04/2016 DX:Asthma; COMME NT: Seen by job developer for deaf adults in [facility] 10y/o /on pulmicort/advair 10-01 proair prn Learning disability 10/04/2016 DX:Learning disability; COMMENT: 10-01 IEP at school Cardiac arrhythmia 10/04/2016 DX:Cardiac ar rhythmia; COMMENT: Behavior problem in child 10/04/2016 DX:Beh avior problem in child; COMMENT: 2014 therapist/counseling wkly Headache 10/04/2016 DX:Headache; COM MENT: Seen pedi neuro hx of nocturnal SZ.3-13 Holter monitor and EKG NL in 3013 /rec cardiac echo 2-14(unclear hx of defibrillations in first 2y of life/possible TIA with hx of paralysis Left side)gloria stress test,r/o GE reflux appts ,09-29,12-30/[facility] for chronic h/a,hx of benign epilepsy with centro-temporal spikes (BECTS) resolved(diag by Dr.Kureshi way neuro Fabiano,FLA). Las* Acne 06/23/2017 DX:Acne; COMMENT : 03/22/11 used Retin A Micro. Whole face broke out: red, itchy, burning. ER evaluation. Given Prednisone and Benadryl. Dermatology Consult ordered ADHD (attention deficit hyperactivity disorder) 06/23/2017 DX:ADHD (attention deficit hyperactivity disorder); COMMENT: Diagnosed by a Dr Schmitz. Was on Focalin. Only took it for 1 month. Had EEG done with Dr Schmitz. Due to insurance issues, did not continue to see him (seen twice). Allergic rhinitis 06/23/2017 DX:Allergic rh initis; COMMENT: 03/24/11 loratadine 10 mg QD Auditory hallucination 06/23/2017 DX:Audito ry hallucination; COMMENT: 10/24/11 OV: noted to have heard baby crying at 1 am. Does not want to sleep by herself. Scared - of herself, of the night. NO visual hallucinations Autism 06/23/2017 DX:Autism; COMME NT: 10/24/11 Dr Morales. First words at 8 months. No sentences until age 4 . Cardiac murmur 06/23/2017 DX:Cardiac murmu r; COMMENT: 8 months old in [place]: febrile illness. ER visit, cyanotic. Transferred to [place]. heart attack requiring resuscitation . Basting Machine Operator in [place] recommended surgery. Moved to [place]. [place] Basting Machine Operator said no surgery required. STEFANI (obstructive sleep apnea) 06/23/2017 DX :STEFANI (obstructive sleep apnea); COMMENT: Snoring. Sleep Study 2007. Was getting tonsils, adenoids removed. Snoring resolved after T & A Seizures (CMS/HCC V24, CMS/HCC V28) 06/23/2017 DX:Seizures (HCC); COMMENT: Dr Naima Randhawa. VEEG done. No seizures captured but frequent spikes seen from C 4 and C 3 P3 independently, activated with sleep. Lamotrigine 200 mg BID Speech delay 06/23/2017 DX:Speech delay; COMMENT: Speecch therapy in [place] Family History Medical History Relation Name Comments Other: Other Aunt mat great aunt Other: Other Brother r/o epilepsy Learning disabilities Father Seizures Mother Cholesterol Level,Fibromyalgia,,Arthritis,Headach e, psoriasis. Depression Paternal Grandmother Psychos is Other: Epilepsy Sister Relation Name Status Comments Aunt Alive Brother Alive Father Alive Mother Alive Paternal Grandmother Sister Alive Social History Tobacco Use Types Packs/Day Years Used Date Smoking Tobacco: Never Smokeless Tobacco: Never Comments Unknown Sex and Gender Information Value Date Recorded Sex Assigned at Not on file Legal Sex Female 4:17 AM EST Gender Identity Not on file Sexual Orientation Not on file Obstetrics History Last Filed Vital Signs Vital Sign Reading Time Taken Comments Blood Pressure 118/70 07/14/2021 1:11 PM EDT Pulse 82 07/14/2021 1:11 PM EDT Temperature - - Respiratory Rate - - Oxygen Saturation - - Inhaled Oxygen Concentration - - Weight 120 kg (264 lb 3.2 oz) 07/14/2021 1:11 PM EDT Height 167 cm (5' 5.75 ) 07/14/2021 1:11 PM EDT Body Mass Index 42.97 07/14/2021 1:11 PM EDT Plan of Treatment Health Maintenance Due Date Last Done Comments Gonorrhea/Chlamydia Screening 2001 Meningococcal B Vaccine (1 of 2 - Standard) 2017 Cervical Cancer Screening: Pap Smear 2022 COVID-19 Vaccine ( season) 2023 DTaP,Tdap,and Td Vaccines (7 - Td or Tdap) 08/25/2024 08/25/2014, 09/29/2005, 06/28/2003, Additional history exists Influenza Vaccine (Season Ended) 2024 02/22/2020, 03/03/2011, 05/18/2010 Hepatitis B Vaccines Completed 06/09/2002, 2001, 2001 HIB Vaccines Completed 06/28/2003, 07/17, 2001 MMR Vaccines Completed 09/22/2003, 06/09/2002 Pneumococcal Vaccine: Pediatrics (0 to 5 Years) and At-Risk Patients (6 to 64 Years) Completed 05/18/2004, 2001, 2001 IPV Vaccines Completed 09/29/2005, 06/15, 2001, Additional history exists Varicella Vaccines Completed 09/05/2006, 06/09/2002 Hepatitis A Vaccines Completed 04/24/2007, 09/06/19 07 HPV Vaccines Completed 10/06/2011, 020 04/2011, 03/16/2011 Meningococcal ACWY Vaccine Completed 10/04/2017, RSV Immunization Patients Under 20 months Aged Out No longer eligible based on patient's age to complete this topic Care Teams Plain Clothes Police Officer Relationship Specialty Start Date End Date Praveen Granger MD PCP - General Pediatrics 11/21/16
--- OUTSIDE RECORDS SUMMARY | 2024-10-17 13:26 | XMS_ITS | Data Portability ---
Author Organization [place] - [facility] [address] Address [address] [place] [address] Care Team Providers Care Vegetable Farm Worker Name Role Phone [facility] Primary Care Provider [phone] Assessment No assessment recorded. Plan of Treatment Reminders Order Date Submit Date Provider Last Modified By Organization Details Last Modified Time Details Appointments None record ed. Lab None record ed. Referral None record ed. Procedures None record ed. Surgeries None record ed. Imaging None record ed. Medication Orders None record ed. Patient TargetsNo targets recorded. Patient Instructions Encounter Date Encounter Id Patient Instructions Last Modified By Organization Details Last Modified Time 06/24/2022 [id number] sore throat: car e instructions [id number] Not available 06/24/2022 17:59:32 Reason for Referral None Reported. Problems Name Problem SNOMED Code Status Onset Date Resolution Date Notes Provider Name and Address Organization Details Recorded Time Asthma 866061441 Active 2022 MARIO DEPINTO null, [place] - [facility] 3 16:25:43 Autistic disorder 850508769 Active 2022 MARIO DEPINTO null, [place] - [facility] 3 16:27:34 Myocardial infarction 48314008 Active 9 months old and 1 yr 6 months MARIO DEPINTO null, [place] - [facility] 3 16:34:18 Problem Notes None recorded. Procedures Surgical History Date Name Laterality Status Provider Name and Address Organization Details Recorded Time tonsillectomy completed MARIO DEPINTO [place] - [facility] 06/24/2022 16:25:32 Imaging Results None recorded. Procedure Notes None recorded. Medical Equipment None Reported. Allergies Allergen ID Allergen Name Allergen Category Reaction Reaction Severity Criticality Documentation Date Start Date Code Code System Note Provider Name and Address Organization Details Recorded Time 805873 latex environme nt,medica tion hives Not available Not available 06/24/2022 38533 91 RxNorm BRIGETTE Sequeira - [facility] 3 16:30:47 Medications Name Sig Start Date Stop Date Status Note LastModified by Organization Details LastModified Time cetirizine 10 mg tablet TAKE 1 TABLET BY MOUTH EVERY DAY active Not Available Not Available No t Available omeprazole 20 mg capsule,del ayed release TAKE 1 CAPSULE BY MOUTH DAILY 06/24 completed Not Available Not Available Not Available ergocalcife rol (vitamin D2) 1,250 mcg (50,000 unit) capsule TAKE 1 CAPSULE ORALLY EVERY WEEK FOR 90 DAYS active Not Available Not Available No t Available epinephrine 0.3 mg/0.3 mL injection, auto-inject or USE DIRECTED FOR ANAPHYLAX IS THEN CALL 911 active Not Available Not Available No t Available naproxen 500 mg tablet TAKE 1 TABLET BY MOUTH TWICE A DAY FOR 7 DAYS active Not Available Not Available No t Available ProAir HFA 90 mcg/actuati on aerosol inhaler INHALE 2 PUFFS BY MOUTH EVERY 4 TO 6 HOURS NEEDED FOR SHORTNESS OF BREATH OR WHEEZING 06/24 completed Not Available Not Available Not Available cholecalcif jesus (vitamin D3) 25 mcg (1,000 unit) tablet TAKE 1 TABLET BY MOUTH DAILY active Not Available Not Available No t Available Vitamin D3 50 mcg (2,000 unit) capsule TAKE 1 CAPSULE BY MOUTH EVERY DAY active Not Available Not Available No t Available Vitals Date Recorded Body height Body mass index (BMI) Body weight Respiratory rate Body temperature Oxygen saturation Oxygen saturation in Arterial blood by Pulse oximetry Heart rate Systolic And Diastolic Provider Name and Address Organization Details Last Updated DateTime 3 165.1 cm 40.8 kg/m2 055380. 13 g 18 /min 97.5 [degF] 98 % 98 % 97 /min 120/81 mm[Hg] MARIO MACHUCA - [facility] 3 16:34:27 Social History Question Answer Notes LastModified by Organizat ion Details LastModified Time Tobacco Smoking Status Never Smoker MARIO DEPINTO null, [place] - [facility] 06/24/2022 16:32:04 Have You Recently Traveled Abroad? No Information not available 06/24/2022 Sex: Unknown Functional Status Question Answer Note LastModified by Organizat ion Details LastModified Time Do you use any illicit or recreational drugs? No Information not available 06/24/2022 Do you or have you ever used any other forms of tobacco or nicotine? No Information not available 06/24/2022 What is your level of alcohol consumption? None Information not available 06/24/2022 Mental Status None recorded. Family History Relationship Description Onset Age of this Age Resolved Age Notes LastModified by Organization Details LastModified Time Father No current problems or disability Not available 06/24 16:31:54 Mother No current problems or disability Not available 06/24 16:31:54 Medical History No medical history recorded. Gynecological HistoryNo gynecological history recorded. Obstetrics History GPAL:G 0 P 0 0 0 0 Immunizations Vaccine Type Date Status Note Provider Nam e and Address Organization Details Recorded Time IPV 2 completed MARIO DEPINTO null, [place] - [facility] 06/24/2022 16:29:10 IPV 2 completed MARIO DEPINTO null, [place] - [facility] 06/24/2022 16:29:10 IPV 6 completed MARIO DEPINTO null, [place] - [facility] 06/24/2022 16:29:10 IPV 2 completed MARIO DEPINTO null, [place] - [facility] 06/24/2022 16:29:10 MMR 3 completed MARIO DEPINTO null, [place] - [facility] 06/24/2022 16:29:10 MMR 4 completed MARIO DEPINTO null, [place] - [facility] 06/24/2022 16:29:10 COVID-19, mRNA, LNP-S, PF, 30 mcg/0.3 mL dose 1 completed MARIO DEPINTO null, [place] - [facility] 06/24/2022 16:29:10 COVID-19, mRNA, LNP-S, PF, 30 mcg/0.3 mL dose 1 completed MARIO DEPINTO null, [place] - [facility] 06/24/2022 16:29:10 Pneumococcal conjugate PCV 13 5 completed MARIO DEPINTO null, [place] - [facility] 06/24/2022 16:29:10 Pneumococcal conjugate PCV 13 2 completed MARIO DEPINTO null, [place] - [facility] 06/24/2022 16:29:10 Pneumococcal conjugate PCV 13 2 completed MARIO DEPINTO null, [place] - [facility] 06/24/2022 16:29:10 varicella 3 completed MARIO DEPINTO null, [place] - [facility] 06/24/2022 16:29:10 varicella 7 completed MARIO DEPINTO null, [place] - [facility] 06/24/2022 16:29:10 HAjT-Jma-MST 4 completed MARIO DEPINTO null, [place] - [facility] 06/24/2022 16:29:10 KBaE-Bse-UZC 2 completed MARIO DEPINTO null, [place] - [facility] 06/24/2022 16:29:10 SYfS-Ral-OMD 2 completed MARIO DEPINTO null, [place] - [facility] 06/24/2022 16:29:10 Influenza, split virus, trivalent, preservative 1 completed MARIO DEPINTO null, [place] - [facility] 06/24/2022 16:29:10 Influenza, split virus, trivalent, preservative 1 completed MARIO DEPINTO null, [place] - [facility] 06/24/2022 16:29:10 HPV, quadrivalent 2 completed MARIO DEPINTO null, [place] - [facility] 06/24/2022 16:29:10 HPV, quadrivalent 2 completed MARIO DEPINTO null, [place] - [facility] 06/24/2022 16:29:10 HPV, quadrivalent 1 completed MARIO DEPINTO null, [place] - [facility] 06/24/2022 16:29:10 Hep B, adolescent or pediatric 3 completed MARIO DEPINTO null, [place] - [facility] 06/24/2022 16:29:10 Hep B, adolescent or pediatric 2 completed MARIO DEPINTO null, [place] - [facility] 06/24/2022 16:29:10 Hep B, adolescent or pediatric 2 completed MARIO DEPINTO null, [place] - [facility] 06/24/2022 16:29:10 Hep A, ped/adol, 2 dose 8 completed MARIO DEPINTO null, [place] - [facility] 06/24/2022 16:29:10 Hep A, ped/adol, 2 dose 7 completed MARIO DEPINTO null, [place] - [facility] 06/24/2022 16:29:10 meningococcal MCV4P 8 completed MARIO DEPINTO null, [place] - [facility] 06/24/2022 16:29:10 DTaP 4 completed MARIO DEPINTO null, [place] - [facility] 06/24/2022 16:29:10 DTaP 2 completed MARIO DEPINTO null, [place] - [facility] 06/24/2022 16:29:10 DTaP 2 completed MARIO DEPINTO null, [place] - [facility] 06/24/2022 16:29:10 DTaP 6 completed MARIO DEPINTO null, [place] - [facility] 06/24/2022 16:29:10 DTaP 2 completed MARIO DEPINTO null, [place] - [facility] 06/24/2022 16:29:10 Influenza, split virus, quadrivalent, PF 0 completed MARIO DEPINTO null, [place] - [facility] 06/24/2022 16:29:10 Influenza, split virus, quadrivalent, PF 2 completed MARIO DEPINTO null, [place] - [facility] 06/24/2022 16:29:10 Past Encounters Encounter ID Performer Location Encounter Start Date Encounter Closed Date Diagnosis/Indication Diagnosis SNOMED-CT Code Diagnosis ICD10 Code Diagnosis Note [id number] [facility] [address] [place] [address] 06/10/2021 16:31:49 06/10/2021 17:55:52 [id number] BALBINA PEREZ MD [address] [address] [place] [address] 06/24/2022 12:44:20 06/24/2022 18:03:03 Sore throat 368391638 J02.9 Sore throatClea r liquids for comfortFre sh Julianna Root Tea-Cut up fresh julianna root and boil it till fragrant. drink the liquid as a tea. Can add Honey to taste. Also For Sore Throat:Thr oat Comfort Tea (by [employer])Thro at Coat Tea ( by [employer] ) Clear broth soup: Vegetable, Chicken or Beef as tolerated. Salt Water GarglesMix 1 teaspoonfu l of salt in a glass of warm water. Gargle and spit out the salt water mixture one mouthful at a time until the glass is empty. Repeat 4 times daily. Health Concerns Section Related Observation LastModified by Organization Detai ls LastModified Time None Recorded Concern Status LastModified by Organization Details LastModified Time None Recorded Advance Directives Directive None Recorded Payers Insurance Date Sequence Insurance Name Policy Number Policy Laurent Covered Member ID Laurent Member ID Guarantor Name 06/24/2022 1 [facility] (MEDICARE REPLACEMENT/A DVANTAGE - HMO) MAMMP Mik Espinosa Guanaco [id number] Mik Francisca Guanaco 06/24/2022 1 [facility] (MEDICAID HMO) [place] Mik Espinosa Guanaco [id number] Mik Francisca Guanaco 06/24/2022 2 [place] [facility] [address] Mik Espinosa Guanaco [id number] Mik Francisca Guanaco 06/24/2022 1 [place] [employer] Mik Blanc [id number] Mik Blanc 06/24/2022 1 [facility] (MEDICAID REPLACEMENT - HMO) DENISHA Mik Blanc [id number] Mik Blanc Notes Date Note Type Note Provider Name and Address Organization Details Recorded Time 06/24/2022 text/html sore throat when talking for 1 wk and getting worse today. states it feels dry not painful. Afebrile. No ear pain, rhinitis, rash, N/V/D. BALBINA PEERZ MD [address] [place], [address], [place] - [facility] 06/24/2022 18:01:15 OBGyn Episode No OBEpisode recorded.
[2024-10-17 13:27] VITALS: BP 132/80; BMI 43.4
== END 2024-10-17 13:59 | disposition home or self-care (01) ==
LOC: HO.HMCH 13:18
PROVIDERS: PCP Internal Medicine; Visit Provider Internal Medicine
DX: Z00.00 Encounter for general adult medical examination without abnormal findings (principal); E66.01 Morbid (severe) obesity due to excess calories; Z68.41 Body mass index [BMI] 40.0-44.9, adult

== ENCOUNTER → 2024-10-17 13:17 | Outpatient (BNVA) | payer OTHER, SELFPAY | PROVIDERS: PCP Internal Medicine; Visit Provider Internal Medicine | DX: Z00.00 Encounter for general adult medical examination without abnormal findings (principal); E66.01 Morbid (severe) obesity due to excess calories; E55.9 Vitamin D deficiency, unspecified; D64.9 Anemia, unspecified; K90.41 Non-celiac gluten sensitivity; Z68.41 Body mass index [BMI] 40.0-44.9, adult | CPT/HCPCS: 96127 ==